=== PATIENT | male | born 1950 | race Caucasian/White ===

== ENCOUNTER 2016-12-07 11:31 | Day surgery (SDC) | payer BC, MEDICARE ==
[2016-12-05 09:48] VITALS: BMI 28.8
--- NOTE | 2016-12-07 08:05 | P.GSHP ---
History of Present Illness H&P Date: 12/07/16 CHIEF COMPLAINT: GERD HISTORY OF PRESENT ILLNESS: The patient is a 66-year-old male who presents reports gastroesophageal reflux disease. Upper endoscopy was offered for further evaluation and management. PAST MEDICAL HISTORY: Please see list. PAST SURGICAL HISTORY: Please see list. MEDICATIONS: Please see list. ALLERGIES: Please see list. SOCIAL HISTORY: No illicit drug use FAMILY HISTORY: No reports of Crohn disease or ulcerative colitis. REVIEW OF ORGAN SYSTEMS: CONSTITUTIONAL: No reports of fevers or chills. GI: Denies any blood in stools or constipation. PHYSICAL EXAM: VITAL SIGNS: Stable GENERAL: Well-developed and pleasant in no acute distress. HEENT: No scleral icterus. Extraocular movements grossly intact. Moist buccal mucosa. NECK: Supple without lymphadenopathy. CHEST: Unlabored respirations. Equal bilateral excursions. CARDIOVASCULAR: Regular rate and rhythm. Distal 2+ pulses. ABDOMEN: Soft, nondistended. MUSCULOSKELETAL: No clubbing, cyanosis, or edema. ASSESSMENT: 1. Gastroesophageal reflux disease PLAN: 1. Recommend proceeding with an upper endoscopy Past Medical History Past Medical History: GERD/Reflux, Hypertension Additional Past Medical History / Comment(s): ECZEMA, barretts esophagus, broken back 1998 ,broken pelvis 1998 History of Any Multi-Drug Resistant Organisms: None Reported Past Surgical History: Appendectomy, Joint Replacement, Orthopedic Surgery Additional Past Surgical History / Comment(s): RIGHT KNEE REPLACEMENT,PELVIC SURGERY,RIGHT EYE SURGERY,COLONOSCOPY,EGD, lap Sandi 10/28/15,. HERNIA REPAIR Past Anesthesia/Blood Transfusion Reactions: No Reported Reaction Past Psychological History: No Psychological Hx Reported Smoking Status: Never smoker Past Alcohol Use History: Occasional Past Drug Use History: None Reported - Past Family History Father Family Medical History: Cancer Additional Family Medical History / Comment(s): COLON CANCER Medications and Allergies Home Medications Medication Instructions Recorded Confirmed Type Losartan [Cozaar] 50 mg PO DAILY 10/20/15 12/05/16 History Allergies Allergy/AdvReac Type Severity Reaction Status Date / Time No Known Allergies Allergy Verified 12/05/16 09:40
[~2016-12-07 11:31] MED LIST: LACTATED RINGERS 1,000 ML IV SCH
[2016-12-07 12:23] VITALS: TEMP 97.2
[2016-12-07] MEDS ORDERED: LIDOCAINE 1% 20 ML VIAL (10MG/ML) FOR IV START INTRADERMA ONE (12:24)
[2016-12-07] MEDS ORDERED: LIDOCAINE 1% INJ 10MG/ML (20 ML MDV) ONE (14:39)
[2016-12-07] MEDS ORDERED: PROPOFOL 10 MG/ML 20 ML VIAL IV ONE (14:39)
[2016-12-07 15:33] VITALS: BP 137/85; PULSE 76; RESP 18
--- NOTE | 2016-12-07 19:08 | P.PCN ---
Date of Procedure: 12/07/16 Preoperative Diagnosis: Postoperative Diagnosis: Procedure(s) Performed: Implants: Indications for Procedure: Operative Findings: Description of Procedure: PREOPERATIVE DIAGNOSIS: Gastroesophageal reflux disease. Previous history of large paraesophageal diaphragmatic hiatal hernia, s/p repair. Lucia's esophagus. POSTOPERATIVE DIAGNOSIS: Gastroesophageal reflux disease. Previous history of large paraesophageal diaphragmatic hiatal hernia, s/p repair. Recurrent diaphragmatic hiatal hernia. 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 OPERATION: Esophagogastroduodenoscopy with biopsies along the esophagus. SURGEON: Jody Rios MD ANESTHESIA: MAC. INDICATIONS: The patient is a 66-year-old male who presents with a history of Lucia's esophagus. He presents for surveillance including recurrent gases after reflux disease. Benefits and risks of the procedure were described. Informed consent was obtained. DESCRIPTION: The patient was brought into the endoscopy suite and laid in the left lateral decubitus position. An Olympus gastroscope was passed along the posterior oropharynx down to the distal esophagus where the squamocolumnar junction was obliterated by his Lucia's esophagus starting from 30 cm from the incisors. The diaphragmatic hiatus was found at 42 cm. Long segment Lucia's of over 10 cm was confirmed however improved from previous evaluation a year ago. The stomach had moderate retained food despite over 12 hours of nothing by mouth status. The first portion of the duodenum was unremarkable. Additional findings are listed below. Retroflexion of the scope confirmed Hill grade 3 lower esophageal valve with recurrent diaphragmatic hiatal hernia of over 2 cm. Biopsies with cold forceps were obtained along the distal esophagus for his Lucia's esophagus. The stomach was desufflated. The patient tolerated the procedure well. FINDINGS: Long segment Lucia's esophagus over 10 cm with biopsies obtained. No gross neoplasms identified. Moderate retained food along the stomach suspicious for gastroparesis. Recurrent diaphragmatic hiatal hernia over 2 cm. RECOMMENDATIONS: 1. Recommend continue antiacid use for history of Lucia's esophagus. 2. He has recurrence of his diaphragmatic hiatal hernia albeit the original was type V, most severe form of a paraesophageal hiatal hernia which may be repaired. Plan - Discharge Summary Discharge Medication List Losartan [Cozaar] 50 mg PO DAILY 10/20/15 [History] Lansoprazole 30 mg PO DAILY 12/07/16 [History] Follow up Appointment(s)/Referral(s): Jody Rios MD [STAFF PHYSICIAN] - 01/08/17 (Joseph) Patient Instructions/Handouts: *Surgery [facility] - (Anesthesia) Endoscopy Discharge Instructions, Hiatal Hernia (DC), Upper Endoscopy (DC), Lucia Esophagus (DC), Lucia Esophagus (GEN) Activity/Diet/Wound Care/Special Instructions: Take your medication daily Discharge Disposition: HOME SELF-CARE
== END 2016-12-07 15:45 | disposition home or self-care (01) ==
LOC: ORWHC2ENDO 11:31
PROVIDERS: ATTEND Surgery Plastic and Reconstructive Surgery
DX: K22.70 Barrett's esophagus without dysplasia (principal); K44.9 Diaphragmatic hernia without obstruction or gangrene; K21.9 Gastro-esophageal reflux disease without esophagitis; I10 Essential (primary) hypertension; Z79.899 Other long term (current) drug therapy
CPT/HCPCS: 88305; 43239; J2001; J2704

== ENCOUNTER 2021-02-22 08:00 | Day surgery (SDC) | payer MEDICARE, OTHER ==
[2021-02-20 08:31] VITALS: BMI 25.8
--- NOTE | 2021-02-22 08:36 | P.GSHP ---
History of Present Illness H&P Date: 02/22/21 CHIEF COMPLAINT: GERD and colon screen HISTORY OF PRESENT ILLNESS: The patient is a 70-year-old male who presents with gastroesophageal reflux disease and need for colon screen. Upper and lower endoscopy were offered for further evaluation and management. PAST MEDICAL HISTORY: Please see list. PAST SURGICAL HISTORY: Please see list. MEDICATIONS: Please see list. ALLERGIES: Please see list. SOCIAL HISTORY: No illicit drug use FAMILY HISTORY: No reports of Crohn disease or ulcerative colitis. REVIEW OF ORGAN SYSTEMS: CONSTITUTIONAL: No reports of fevers or chills. GI: Denies any blood in stools or constipation. PHYSICAL EXAM: VITAL SIGNS: Stable GENERAL: Well-developed pleasant in no acute distress. HEENT: No scleral icterus. Extraocular movements grossly intact. Moist buccal mucosa. NECK: Supple without lymphadenopathy. CHEST: Unlabored respirations. Equal bilateral excursions. CARDIOVASCULAR: Regular rate and rhythm. Distal 2+ pulses. ABDOMEN: Soft, nondistended. MUSCULOSKELETAL: No clubbing, cyanosis, or edema. ASSESSMENT: 1. Gastroesophageal reflux disease 2. Colon screen. PLAN: 1. Recommend proceeding with an upper and lower endoscopy Past Medical History Past Medical History: GERD/Reflux, Hypertension, Skin Disorder Additional Past Medical History / Comment(s): barretts esophagus. broken back 1998, broken pelvis 1998 History of Any Multi-Drug Resistant Organisms: None Reported Past Surgical History: Appendectomy, Hernia Repair, Joint Replacement, Orthopedic Surgery Additional Past Surgical History / Comment(s): RIGHT KNEE REPLACEMENT. PELVIS REPAIR. RIGHT EYE SURGERY FOR A BLEED. DENNIS FUNDOPLICATION Past Anesthesia/Blood Transfusion Reactions: No Reported Reaction Past Psychological History: No Psychological Hx Reported Smoking Status: Never smoker Past Alcohol Use History: None Reported Past Drug Use History: None Reported - Past Family History Father Family Medical History: Cancer Additional Family Medical History / Comment(s): COLON CANCER Medications and Allergies Home Medications Medication Instructions Recorded Confirmed Type Omeprazole 20 mg PO HS 02/20/21 02/20/21 History Allergies Allergy/AdvReac Type Severity Reaction Status Date / Time No Known Allergies Allergy Verified 02/20/21 08:14
[2021-02-22 08:59] VITALS: RESP 16; TEMP 97.9
[2021-02-22] MEDS ORDERED: LIDOCAINE 1% INJ 10MG/ML (20 ML MDV) ONE (09:25)
[2021-02-22] MEDS ORDERED: PROPOFOL 10 MG/ML 20 ML VIAL IV ONE (09:25)
--- NOTE | 2021-02-22 09:57 | P.PCN ---
Date of Procedure: 02/22/21 Description of Procedure: PREOPERATIVE DIAGNOSIS: Change in bowel habits POSTOPERATIVE DIAGNOSIS: Change in bowel habits Diverticulosis, scattered. OPERATION: Colonoscopy to the cecum, ileocecal valve and appendiceal orifice. SURGEON: Jody Rios MD. ANESTHESIA: MAC. INDICATIONS: The patient is a 70-year-old male who presents with change in bowel habits. Benefits and risks were described and informed consent was obtained. DESCRIPTION OF PROCEDURE: The patient had undergone Suprep. The patient had been brought into the operating room and laid in the left lateral decubitus position. After adequate intravenous sedation, the rectum was examined with 2% lidocaine jelly. The prostate fossa was unremarkable. No external hemorrhoids were encountered. The rectal tone was within normal limits. No lesions were palpated in the rectal vault. An Olympus colonoscope was advanced until the cecum, ileocecal valve and appendiceal orifice were clearly viewed. The prep was fair. Scattered diverticulosis was encountered. No colonic polyps were found. No evidence of focal colitis was found. Retroflexion of the scope demonstrated grade 1 internal hemorrhoids without active bleeding or inflammation. The colon was desufflated. The patient had tolerated the procedure well. Withdrawal time was over 6 minutes. FINDINGS: Aronchick preparation quality scale 3 (1-5) Internal hemorrhoids, grade 1 No external prolapsed hemorrhoids. No arteriovenous malformations. No adenomatous polyps. No focal colitis. Sigmoid diverticulosis Redundant sigmoid colon RECOMMENDATIONS: Lower endoscopy in 5 years2025 for history of colon polyps Increase fiber intake 35 g daily
--- NOTE | 2021-02-22 10:01 | P.PCN ---
Date of Procedure: 02/22/21 Description of Procedure: PREOPERATIVE DIAGNOSIS: Gastroesophageal reflux disease. Lucia's esophagus History of Sandi fundoplasty POSTOPERATIVE DIAGNOSIS: Recurrent diaphragmatic hiatal hernia Lucia's esophagus Gastroesophageal reflux disease OPERATION: Esophagogastroduodenoscopy with biopsies along antrum and distal esophagus SURGEON: Jody iRos MD ANESTHESIA: MAC. INDICATIONS: The patient is a 70-year-old male who presents with a history of reflux disease. Benefits and risks of the procedure were described. Informed consent was obtained. DESCRIPTION: The patient was brought into the endoscopy suite and laid in the left lateral decubitus position. An Olympus gastroscope was passed along the posterior oropharynx down to the distal esophagus where the squamocolumnar junction was encountered at 35 cm from the incisors. The stomach was entered and no bile reflux was found. Additional findings are listed below. Biopsies with cold forceps were obtained of the antrum. The first through third portion of the duodenum was examined and unremarkable. Retroflexion of the scope confirmed Hill grade 4 lower esophageal valve. The squamocolumnar junction demonstrated LA grade D erosive esophagitis, 3 cm. Unfolding of Sandi fundoplasty was identified. The stomach was desufflated. The patient tolerated the procedure well. FINDINGS: Squamocolumnar junction 35 cm from the incisors. Diaphragmatic hiatus at 40 cm. Hiatal hernia, 5 cm Unwrap of Sandi fundoplasty Hill grade 4 lower esophageal valve. LA grade D erosive esophagitis. No active duodenitis. Chronic gastritis with recent bleed RECOMMENDATIONS: 1. Increase omeprazole to 40 mg daily for erosive esophagitis 2. Recommend repair of recurrent hiatal hernia Plan - Discharge Summary Discharge Rx Participant: Yes New Discharge Prescriptions: New Omeprazole [PriLOSEC] 40 mg PO DAILY #90 cap Discontinued Omeprazole 20 mg PO HS Discharge Medication List Omeprazole [PriLOSEC] 40 mg PO DAILY #90 cap 02/22/21 [Rx] Follow up Appointment(s)/Referral(s): Jody Rios MD [STAFF PHYSICIAN] - 03/14/21 Patient Instructions/Handouts: Lucia Esophagus (DC) Activity/Diet/Wound Care/Special Instructions: Repeat colonoscopy 5 years, 2025 Discharge Disposition: HOME SELF-CARE
[2021-02-22 10:29] VITALS: BP 133/76; PULSE 64
== END 2021-02-22 10:59 | disposition home or self-care (01) ==
LOC: ORWHC2ENDO 08:00
PROVIDERS: ATTEND Surgery Plastic and Reconstructive Surgery
DX: K57.90 Diverticulosis of intestine, part unspecified, without perforation or abscess without bleeding (principal); K21.9 Gastro-esophageal reflux disease without esophagitis; K22.70 Barrett's esophagus without dysplasia; K29.50 Unspecified chronic gastritis without bleeding; K44.9 Diaphragmatic hernia without obstruction or gangrene; I10 Essential (primary) hypertension; Z90.49 Acquired absence of other specified parts of digestive tract
CPT/HCPCS: 45378; 43239; 88305; J2001; J2704

== ENCOUNTER → 2021-02-22 | Outpatient (CLI) | payer MEDICARE, OTHER ==
--- NOTE | 2021-02-22 09:00 | US ---
EXAMINATION TYPE: US gallbladder DATE OF EXAM: 02/22/2021 COMPARISON: NONE CLINICAL HISTORY: K80.20 Calculus of Gallbladder. Diarrhea EXAM MEASUREMENTS: Liver Length: 14.7 cm Gallbladder Wall: 0.2 cm CBD: 0.4 cm Right Kidney: 10.7 x 4.5 x 4.4 cm Pancreas: obscured by overlying midline bowel gas Liver: multiple cysts with largest measuring 1.3cm Gallbladder: wnl Evidence for sonographic Wallis's sign: no CBD: visualized portions wnl, limited by overlying bowel gas Right Kidney: wnl IMPRESSION: 1. Hepatic cysts. 2. No suspicious abnormality within the gallbladder
== END | disposition home or self-care (01) ==
LOC: RADUSWWP 08:06
PROVIDERS: ATTEND Surgery Plastic and Reconstructive Surgery
DX: K80.20 Calculus of gallbladder without cholecystitis without obstruction (principal); K76.89 Other specified diseases of liver
CPT/HCPCS: 76705